=== PATIENT | female | born 1990 | race Caucasian/White ===

== ENCOUNTER 2018-04-23 15:58 | Emergency (ER) | payer BC ==
[2018-04-23] MEDS ORDERED: KETOROLAC TROMETHAMINE INJ/PF 30 MG/1 ML SDV IV ONE (17:07)
[2018-04-23] MEDS ORDERED: ONDANSETRON HCL INJ/PF 4 MG/2 ML SDV IV ONE (17:07)
--- NOTE | 2018-04-23 17:34 | ER Document Report ---
ED Medical Screen (RME) - General Chief Complaint: Abdominal Pain Stated Complaint: ABDOMINAL PAIN Time Seen by Provider: 04/23/18 16:58 Notes: 27-year-old female to the emergency department chief complaint of right lower quadrant pain. Patient states that this is been going on for approximately 1 month. Will hurt for a couple of days and go away. Today this brought her to her knees. Had nausea associated with it. No fever or chills. No dysuria. Patient is status post tubal ligation. Last 2 years ago. Did have an ultrasound performed approximately 2 months ago and was told she had an enlarged uterus. No other issues at this time. I have greeted and performed a rapid initial assessment of this patient. A comprehensive ED assessment and evaluation of the patient, analysis of test results and completion of the medical decision making process will be conducted by additional ED providers. TRAVEL OUTSIDE OF THE [place] IN LAST 30 DAYS: No - HPI Onset: This morning Onset/Duration: Gradual, Constant Quality of pain: Sharp, Stabbing, Throbbing Severity: Moderate Pain Level: 3 - Related Data Allergies/Adverse Reactions: No Known Allergies Allergy (Verified 02/12/16 10:23) Past Medical History - General Information source: Patient - Social History Chew tobacco use (# tins/day): No Frequency of alcohol use: None Drug Abuse: None Lives with: Spouse/Significant other Family history: Reviewed & Not Pertinent - Past Medical History Cardiac Medical History: Denies: Hx Pulmonary Embolism Pulmonary Medical History: Denies: Hx Asthma, Hx Sleep Apnea, Hx Tuberculosis Renal/ Medical History: Denies: Hx Kidney Stones, Hx Ovarian Cysts, Hx Peritoneal Dialysis, Hx Pelvic Inflammatory Disease Malignancy Medical History: Denies: Hx Breast Cancer, Hx Cervical Cancer, Hx Ovarian Cancer GI Medical History: Reports: Hx Gastroesophageal Reflux Disease - during . Denies: Hx Hiatal Hernia, Hx Ulcer Past Surgical History: Reports: Hx Section - x3, Hx Tubal Ligation - Immunizations Hx Diphtheria, Pertussis, Tetanus Vaccination: Yes Review of Systems - Review of Systems Notes: Constitutional: denies: Chills, Diaphoresis, Fever, Malaise, Weakness EENT: denies: Eye discharge, Blurred vision, Tearing, Double vision, Nose congestion, Nose discharge, Throat swelling, Mouth pain Cardiovascular: denies: Palpitations, Heart racing, Orthopnea, Dyspnea, Chest pain Respiratory: denies: Cough, Hurts to breathe, Wheezing, Shortness of breath Gastrointestinal: Planing of right lower quadrant abdominal pain with nausea and vomiting. No diarrhea. Genitourinary: denies: Burning, Dysuria, Discharge, Frequency, Flank pain, Hematuria Musculoskeletal: denies: Joint pain, Joint swelling, Muscle pain, Muscle stiffness, back pain Hematologic/Lymphatic: denies: Anemia, Easy bleeding, Easy bruising, Blood clots Neurological/Psychological: denies: Confusion, Dementia, Depression, Loss of consciousness Skin: No lesions, no masses, no skin breakdown, no abscesses Physical Exam - Vital signs Vitals: Temp Pulse Resp BP Pulse Ox 98.4 F 111 H 16 133/74 H 98 04/23/18 16:04/23/18 16:04/23/18 16:01 04/23/18 16:01 04/23/18 16:01 Interpretation: Tachycardic - General General appearance: Appears well, Alert - HEENT Head: Normocephalic, Atraumatic Eyes: Normal Pupils: PERRL - Respiratory Respiratory status: No respiratory distress Chest status: Nontender Breath sounds: Normal Chest palpation: Normal - Cardiovascular Rhythm: Tachycardia Heart sounds: Normal auscultation Murmur: No - Abdominal Inspection: Normal Distension: No distension Bowel sounds: Normal Tenderness: Tender - Tenderness in the right lower quadrant with some mild voluntary guarding Organomegaly: No organomegaly - Back Back: Normal, Nontender - Extremities General upper extremity: Normal inspection, Nontender, Normal color, Normal ROM , Normal temperature General lower extremity: Normal inspection, Nontender, Normal color, Normal ROM , Normal temperature, Normal weight bearing. No: Mariza's sign - Neurological Neuro grossly intact: Yes Cognition: Normal Orientation: AAOx4 Annamarie Coma Scale Eye Opening: Spontaneous Annamarie Coma Scale Verbal: Oriented Gurdon Coma Scale Motor: Obeys Commands Gurdon Coma Scale Total: 15 Speech: Normal Motor strength normal: LUE, RUE, LLE, RLE Sensory: Normal - Psychological Associated symptoms: Normal affect, Normal mood - Skin Skin Temperature: Warm Skin Moisture: Dry Skin Color: Normal Course - Vital Signs Vital signs: Temp Pulse Resp BP Pulse Ox 98.4 F 111 H 16 133/74 H 98 04/23/18 16:01 04/23/18 16:01 04/23/18 16:01 04/23/18 16:01 04/23/18 16:01 Doctor's Discharge - Discharge Referrals: ANTONETTE SCHWARTZ, [Primary Care Provider] - Follow up as needed
[2018-04-23 17:51] LABS: AMORPHOUS SEDIMENT,URINE TRACE /HPF; APPEARANCE,URINE CLOUDY; BILIRUBIN,URINE NEGATIVE (NEGATIVE); COLOR,URINE YELLOW; GLUCOSE, URINE NEGATIVE (NEGATIVE); KETONES,URINE NEGATIVE (NEGATIVE); LEUKOCYTE ESTERASE,URINE NEGATIVE (NEGATIVE); NITRITE,URINE NEGATIVE (NEGATIVE); PROTEIN,URINE NEGATIVE (NEGATIVE); URINE SPECIFIC GRAVITY 1.026
--- NOTE | 2018-04-23 18:12 | RADIOLOGY REPORT (SQ) ---
EXAM DESCRIPTION: U/S NON-OB PELVIS TV W/O DOP COMPLETED DATE/TIME: 04/23/2018 6:02 pm REASON FOR STUDY: rlq pain COMPARISON: None. TECHNIQUE: Dynamic and static grayscale images acquired of the pelvis via transvaginal approach and recorded on PACS. Additional selected color Doppler and spectral images recorded. LIMITATIONS: Poor acoustical window limited visualization. FINDINGS: UTERUS: Contour normal. No mass. ENDOMETRIAL STRIPE: No focal or generalized thickening. No masses. CERVIX: No nabothian cysts. RIGHT OVARY AND DOPPLER: Ovary not visualized. LEFT OVARY AND DOPPLER: Ovary not visualized. FREE FLUID: None noted. OTHER: No other significant finding. MEASUREMENTS: UTERUS: 8.5 cm ENDOMETRIAL STRIPE: 6 8 mm RIGHT OVARY: Not visualized. LEFT OVARY: Not visualized. IMPRESSION: Uterus normal. Ovaries not identified due to poor acoustical window. TECHNICAL DOCUMENTATION: JOB ID: [id number] [employer]- All Rights Reserved Rev-10/23 Reading location - IP/workstation name: [id number]
[2018-04-23 18:35] LABS: ABSOLUTE BASOPHILS # (AUTO) 0.1 10^3/uL (0.0-0.2); ABSOLUTE EOSINOPHILS # (AUTO) 0.1 10^3/uL (0.0-0.6); ABSOLUTE LYMPHOCYTES (AUTO) 2.5 10^3/uL (0.5-4.7); ABSOLUTE MONOCYTES (AUTO) 1.1 10^3/uL (0.1-1.4); ABSOLUTE NEUT (AUTO) 6.5 10^3/uL (1.7-8.2); BASOPHILS % (AUTO) 0.5 % (0-2); EOSINOPHILS % (AUTO) 0.7 % (0-6); HEMATOCRIT 38.3 % (36.0-47.0); HEMOGLOBIN 12.5 g/dL (12.0-15.5); LYMPHOCYTES % (AUTO) 24.1 % (13-45); MEAN CORPUSCULAR HEMOGLOBIN 27.2 pg (27.0-33.4); MEAN CORPUSCULAR HGB CONC 32.7 g/dL (32.0-36.0); MEAN CORPUSCULAR VOLUME 83 fl (80-97); MONOCYTES % (AUTO) 10.8 % (3-13); PLATELET COUNT 384 10^3/uL (150-450); RED BLOOD COUNT 4.61 10^6/uL (3.72-5.28); RED CELL DISTRIBUTION WIDTH 14.6 % (11.5-14.0); SEGMENTED NEUTROPHILS % (AUTO) 63.9 % (42-78); TOTAL CELLS COUNTED % (AUTO) 100 %; WHITE BLOOD COUNT 10.2 10^3/uL (4.0-10.5)
[2018-04-23 18:55] LABS: ALANINE AMINOTRANSFERASE 21 U/L (9-52); ALBUMIN 4.3 g/dL (3.5-5.0); ALKALINE PHOSPHATASE 85 U/L (38-126); ANION GAP 9 (5-19); ASPARTATE AMINO TRANSFERASE 21 U/L (14-36); BILIRUBIN,DIRECT 0.2 mg/dL (0.0-0.4); BILIRUBIN,TOTAL 0.3 mg/dL (0.2-1.3); BLOOD UREA NITROGEN 18 mg/dL (7-20); CALCIUM 9.5 mg/dL (8.4-10.2); CARBON DIOXIDE 29 mmol/L (22-30); CHLORIDE 105 mmol/L (98-107); GLUCOSE 88 mg/dL (75-110); POTASSIUM 4.8 mmol/L (3.6-5.0); TOTAL PROTEIN 7.5 g/dL (6.3-8.2)
[2018-04-23] MEDS ORDERED: FENTANYL CITRATE INJ/PF 100 MCG/2 ML AMPUL IV ONE (19:29)
--- NOTE | 2018-04-23 20:05 | ER Document Report ---
ED General - General Chief Complaint: Abdominal Pain Stated Complaint: ABDOMINAL PAIN Time Seen by Provider: 04/23/18 16:58 Notes: RME Provider note: 27-year-old female to the emergency department chief complaint of right lower quadrant pain. Patient states that this is been going on for approximately 1 month. Will hurt for a couple of days and go away. Today this brought her to her knees. Had nausea associated with it. No fever or chills. No dysuria. Patient is status post tubal ligation. Last 2 years ago. Did have an ultrasound performed approximately 2 months ago and was told she had an enlarged uterus. No other issues at this time. MY HPI: Patient is denying dysuria, vaginal discharge, current vaginal bleeding, or vomiting. Patient stated that she is still nauseous despite Zofran administration. Patient states on Thursday she did have one episode of nonbloody diarrhea but has not had any since. Patient denies any chest pain, shortness of breath. Patient states her last menstrual period was March 29 and lasted for 2 weeks. She has had no bleeding since. Because of that extensive bleeding on March 29 she presented to her DIRECTOR PHONE and got a pelvic ultrasound which revealed a enlarged uterus without fibroids. Stated she is unsure of her ovaries at the time states her DIRECTOR PHONE did not tell her anything. Past medical history: Anxiety Medications: Prozac Allergies: None Surgical history: Tubal ligation 2 years ago, section x3 TRAVEL OUTSIDE OF THE [place] IN LAST 30 DAYS: No - Related Data Allergies/Adverse Reactions: No Known Allergies Allergy (Verified 02/12/16 10:23) Past Medical History - General Information source: Patient - Social History Smoking Status: Never Smoker Chew tobacco use (# tins/day): No Frequency of alcohol use: None Drug Abuse: None Lives with: Spouse/Significant other Family History: None Patient has suicidal ideation: No Patient has homicidal ideation: No - Past Medical History Cardiac Medical History: Denies: Hx Pulmonary Embolism Pulmonary Medical History: Denies: Hx Asthma, Hx Sleep Apnea, Hx Tuberculosis Renal/ Medical History: Denies: Hx Kidney Stones, Hx Ovarian Cysts, Hx Peritoneal Dialysis, Hx Pelvic Inflammatory Disease Malignancy Medical History: Denies: Hx Breast Cancer, Hx Cervical Cancer, Hx Ovarian Cancer GI Medical History: Reports: Hx Gastroesophageal Reflux Disease - during . Denies: Hx Hiatal Hernia, Hx Ulcer Past Surgical History: Reports: Hx Section - x3, Hx Tubal Ligation - Immunizations Hx Diphtheria, Pertussis, Tetanus Vaccination: Yes Review of Systems - Review of Systems Constitutional: denies: Fever, Weakness EENT: No symptoms reported Cardiovascular: denies: Chest pain, Palpitations, Dizziness Respiratory: No symptoms reported Gastrointestinal: See HPI Genitourinary: See HPI Female Genitourinary: See HPI Musculoskeletal: denies: Back pain, Muscle pain Skin: No symptoms reported Hematologic/Lymphatic: No symptoms reported Neurological/Psychological: No symptoms reported Physical Exam - Vital signs Vitals: Temp Pulse Resp BP Pulse Ox 98.4 F 111 H 16 133/74 H 98 04/23/18 16:01 04/23/18 16:01 04/23/18 16:01 04/23/18 16:01 04/23/18 16:01 - Notes Notes: GENERAL: Alert, interacts well. No acute distress. HEAD: Normocephalic, atraumatic. EYES: Pupils equal, round, and reactive to light. Extraocular movements intact. ENT: Oral mucosa moist, tongue midline. NECK: Full range of motion. Supple. Trachea midline. LUNGS: Clear to auscultation bilaterally, no wheezes, rales, or rhonchi. No respiratory distress. HEART: Regular rate and rhythm. No murmur ABDOMEN: Soft, Non-distended. Bowel sounds present in all 4 quadrants. Right pelvic pain. No McBurney's point tenderness, no Calderón sign. EXTREMITIES: Moves all 4 extremities spontaneously. No edema, normal radial and dorsalis pedis pulses bilaterally. No cyanosis. BACK: no cervical, thoracic, lumbar midline tenderness. No saddle anesthesia, normal distal neurovascular exam. No CVA tenderness bilaterally NEUROLOGICAL: Alert and oriented x3. Normal speech. cranial nerves II through XII grossly intact. PSYCH: Normal affect, normal mood. SKIN: Warm, dry, normal turgor. No rashes or lesions noted. Course - Re-evaluation Re-evalutation: 04/23/18 20:05 Discussed ultrasound results with patient at bedside. Discussed about the bilateral ovaries were not seen. Next test would be to proceed with a CT scan. Patient states she feels better with medical treatments in the emergency room. But is worried that the pain will return. Appendicitis unlikely due to intermittent pain for the last month. On exam patient does not have right lower quadrant pain she has more right pelvic pain. But states pain intermittently goes into her right lower quadrant. No leukocytosis, no signs of anemia, no urinary tract infection, no electrolyte abnormalities. Discussed giving the patient Phenergan to help with her continued nausea. Patient is requesting CT imaging at this time. 04/23/18 22:16 CT results possibly recently ruptured right ovarian cyst. This would coincide with the patient's right lower pelvic pain. No signs of anemia, no signs of leukocytosis, no signs of urinary tract infection. Patient states pain has continued to subside, she is wishing for discharge. - Vital Signs Vital signs: Temp Pulse Resp BP Pulse Ox 98.4 F 111 H 16 133/74 H 98 04/23/18 16:01 04/23/18 16:01 04/23/18 16:01 04/23/18 16:01 04/23/18 16:01 - Laboratory Result Diagrams: 04/23/18 18:16 04/23/18 18:16 Laboratory results interpreted by me: 04/23/18 04/23/18 17:13 18:16 RDW 14.6 H Urine Blood SMALL H Urine Urobilinogen 2.0 H Discharge - Discharge Clinical Impression: Ovarian cyst Qualifiers: Laterality: right Qualified Code(s): N83.201 - Unspecified ovarian cyst, right side Condition: Stable Disposition: HOME, SELF-CARE Instructions: Ovarian Cyst ([facility]) Additional Instructions: As we discussed you have been seen and treated in the emergency department for a possible ruptured ovarian cyst. You should follow-up with your DIRECTOR PHONE or primary care provider in the next 24-48 hours. I have included a phone number for Dr. Zachary Ritter who is an DIRECTOR PHONE in this area if you cannot get into your DIRECTOR PHONE. Please return to the emergency room for any other concerning symptoms. Referrals: ANTONETTE SCHWARTZ DO [Primary Care Provider] - Follow up as needed ZACHARY RITTER MD [ACTIVE STAFF] - Follow up as needed
[2018-04-23] MEDS ORDERED: PROMETHAZINE HCL INJ 25 MG/1 ML VIAL IV ONE (20:06)
--- NOTE | 2018-04-23 21:22 | RADIOLOGY REPORT (SQ) ---
EXAM DESCRIPTION: CT ABDOMEN PELVIS WITH IV CONTRAST COMPLETED DATE/TME: 04/23/2018 19:58 CLINICAL HISTORY: 27 years, Female, rlq pain COMPARISON: EXAM DESCRIPTION: CLINICAL HISTORY: rlq pain COMPARISON: None Available TECHNIQUE: Contiguous axial images of the abdomen and pelvis were obtained after the administration of intravenous contrast followed by reconstruction images.This exam was performed according to our departmental dose-optimization program, which includes automated exposure control, adjustment of the mA and/or kV according to patient size and/or use of iterative reconstruction technique. FINDINGS: There are metallic densities in the pelvis likely related to surgery. There is probable pectus deformity, incompletely imaged. There is an anterior abdominal wall defect. No evidence of bowel stranding in relation or herniation in this region. The liver, spleen, pancreas and kidneys are within normal limits. There is no hydronephrosis. The gallbladder is unremarkable. Adrenal glands are within normal limits. Aorta is normal in caliber and tapering. No significant free fluid. No free air. No bowel obstruction. There is no stranding of the mesenteric fat. The appendix appears normal. No evidence of periappendiceal inflammation. IMPRESSION: No acute intra-abdominal abnormality. TECHNIQUE: Images stored on PACS. All CT scanners at this facility use dose modulation, iterative reconstruction, and/or weight based dosing when appropriate to reduce radiation dose to as low as reasonably achievable (ALARA). [facility]: Dose Right [facility]: CareDose [facility]: Dose Right [facility]: Teradose 4D [facility]: Flowgear LIMITATIONS: None. FINDINGS: IMPRESSION: TECHNICAL DOCUMENTATION: Quality ID # [id number]: Final reports with documentation of one or more dose reduction techniques (e.g., Automated exposure control, adjustment of the mA and/or kV according to patient size, use of iterative reconstruction technique) 2010 [employer]- All Rights Reserved
[2018-04-23 22:37] VITALS: BP 117/70
== END 2018-04-23 22:37 | disposition home or self-care (01) ==
LOC: ER 15:58
DX: N83.201 Unspecified ovarian cyst, right side (principal); R11.0 Nausea; F41.9 Anxiety disorder, unspecified; Z79.899 Other long term (current) drug therapy; Z98.51 Tubal ligation status
CPT/HCPCS: 99284; 96374; 96375; 36415; 85025; 81025; 80053; 81001; 76830; 74177; J3010; J1885; J2550; J2405